=== PATIENT | female | born 1945 | race Caucasian/White ===

== ENCOUNTER 2016-08-01 14:19 | Inpatient (IN) | payer MEDICARE ==
--- NOTE | ~2016-08-01 | HP ---
History And Physical [facility] [id number] [place]. [address] NAME: ANDRE KILLIAN : 49 STATUS : ADM Rita PAT#: [id number] AGE: 71 ADM/REG DATE : 08/01/16 MR#: [id number] REPORT SERV DATE: 08/01/16 DICTATED BY: NEO DRISCOLL DATE: 08/01/16 REPORT STATUS : Draft TRANSCRIBED BY: MODCorie DATE: 08/01/16 DATE OF ADMISSION: 08/01/2016 CHIEF COMPLAINT: Altered mentation with hypoglycemia. HISTORY OF PRESENT ILLNESS: Ms. Killian is a very pleasant, 71-year-old white female with end-stage renal disease. She dialyzes Tuesday, Tuesday, Tuesday at the [facility] through a left upper arm AV fistula. She was recently here at [facility] in 06/2016, at which time, she was diagnosed with hepatocellular cancer via biopsy. She was recently started on an oral chemotherapy and has been followed by Dr. German. She presented today with hypoglycemia having blood sugars in the 50s per EMS along with altered mentation. She was brought into the ER where her sugar was 61. Potassium 4.0. White count 15,500. Chest x- ray showed a moderate left-sided pleural effusion. She is awake, alert, oriented, but concerned for ongoing hypoglycemia. Nephrology was called for admission. She has been taking 25 units of Levemir insulin twice a day at home. Interestingly, her A1c which was 9.5% in 12/2015 was 5.9% as recently as 07/15/2016. PAST MEDICAL HISTORY: 1. ESRD, MWF [facility], left upper arm AV fistula. 2. IDDM with recent A1c of 5.9%. 3. Liver cancer, diagnosed in 06/2016. 4. Hypertension. 5. History of TIAs. 6. IBS. 7. Oxygen-dependent COPD 4 L chronically. 8. Cirrhosis. 9. Chronic pain. MEDICATIONS: 1. Amlodipine 10 mg daily. 2. Aspirin 325 mg daily. 3. Neurontin 200 mg daily. 4. Levemir 25 units b.i.d. 5. Novolin sliding scale. 6. Lisinopril 40 mg daily. 7. Metoprolol 12.5 mg b.i.d. 8. MS Contin 15 mg b.i.d. 9. Prilosec 20 mg daily. 10.Renvela 800 mg with meals. 11.Roxicodone 5 mg p.o. b.i.d. p.r.n. pain. 12.Nexavar 200 mg daily. FAMILY HISTORY: No ESRD. SOCIAL HISTORY: She is . Former remote smoker with heavy tobacco history. History And Physical [address] [place]. [address] NAME: ANDRE KILLIAN : 49 STATUS : ADM Rita PAT#: [id number] AGE: 71 ADM/REG DATE : 08/01/16 MR#: [id number] REPORT SERV DATE: 08/01/16 DICTATED BY: NEO DIRSCOLL DATE: 08/01/16 REPORT STATUS : Draft TRANSCRIBED BY: HAILEE DATE: 08/01/16 REVIEW OF SYSTEMS: Please see HPI for pertinent details. PHYSICAL EXAMINATION: VITAL SIGNS: Temperature 99.2, pulse 89, respirations 18, blood pressure 125/46, and 96% saturation on 4 L per nasal cannula. GENERAL: She is a pleasant, elderly appearing white female. Awake, alert, oriented, and cooperative with the exam. Appears chronically ill. She is accompanied by multiple family members. She is sitting up in her hospital stretcher in no distress. NEURO: Grossly nonfocal. HEENT: Sclerae without icterus. Conjunctivae not injected. Oropharynx is clear. She has diffuse bilateral rhonchi with decreased breath sounds at the left base. No tachypnea or dyspnea on O2 per nasal cannula. Regular rate and rhythm. No murmur, rub, or gallop. ABDOMEN: Obese, soft, nontender, and nondistended. Bowel sounds present throughout without rebound, guarding, or peritoneal signs. EXTREMITIES: No edema. SKIN: No rash. Left upper arm AV fistula, has palpable thrill, audible bruit. LABORATORY DATA: Sodium 136, potassium 4, bicarb 31, BUN 20, creatinine 4.1, glucose 61, calcium 7.6, albumin 2.2, troponin and liver function tests were normal. White count 15,500, hemoglobin 11.3, and platelets 387,000. INR 1.3. ASSESSMENT AND PLAN: 1. End stage renal disease, on chronic dialysis. 2. Insulin-dependent diabetes mellitus. 3. Recent liver cancer. 4. Hypoglycemia. 5. Chronic obstructive pulmonary disease, on oxygen at home. 6. Leukocytosis. 7. Hypoalbuminemia. 8. Weight loss. 9. Left pleural effusion. Admit to the Renal Service. We will hold the Levemir. Place her on gentle D10 IV fluids. Cover with sliding scale insulin. Interestingly, her A1c was only 5.9% in 06/2016. Unclear at this point, the reason for the improvement. That might be related to her weight loss from cancer and/or chemotherapy ?. For now, may not need to be on scheduled Levemir at home ?. PLAN: Dialysis tomorrow. Protect left arm. Family updated. Watch labs. Provide supportive care. Hold off on antibiotics at this time. Watch labs closely. Hopefully, can transition to the outpatient setting in the next 24 to 48 hours. FREEDOM/HAILEE History And Physical [address] [address] NAME: ANDRE KILLIAN : 49 STATUS : ADM Rita PAT#: [id number] AGE: 71 ADM/REG DATE : 08/01/16 MR#: [id number] REPORT SERV DATE: 08/01/16 DICTATED BY: NEO DRISCOLL DATE: 08/01/16 REPORT STATUS : Draft TRANSCRIBED BY: HAILEE DATE: 08/01/16 Neo Driscoll M.D. / [id number] CC: Roma Mccarthy M.D.
--- NOTE | ~2016-08-01 | DS ---
Discharge Summary [facility] [address] [place]. [address] NAME: ANDRE GRISSOM : 49 STATUS : DIS IN PAT#: [id number] AGE: 71 ADM/REG DATE : 08/02/16 MR#: [id number] REPORT SERV DATE: 08/20/16 DICTATED BY: DENEEN PRESCOTT JR DATE: 08/19/16 REPORT STATUS : Draft TRANSCRIBED BY: HAILEE DATE: 08/19/16 Data Collection from hospitalization DISCHARGE DIAGNOSES: 1. End-stage renal disease. 2. Hypoglycemia - resolved. 3. Altered mental status - resolved. 4. Chronic obstructive pulmonary disease with O2 dependence. 5. Hepatic cellular cancer. 6. Diabetes mellitus. 7. Hypertension. 8. History of transient ischemic attacks. 9. Irritable bowel syndrome. 10.Oxygen-dependent chronic obstructive pulmonary disease. 11.Cirrhosis. 12.Chronic pain. 13.Former smoker. CONSULTATIONS: None. PROCEDURES PERFORMED: None. MEDICATIONS: Norvasc 10 mg daily - hold for systolic blood pressure less than 110, aspirin 325 mg daily, Benadryl 25 mg at bedtime, Colace 100 mg at bedtime, NovoLog injection insulin as instructed, Prinivil 40 mg daily - hold for systolic blood pressure less than 110, MS Contin 15 mg twice a day, Megace oral suspension 800 mg daily, Lopressor 12.5 mg twice a day - hold for systolic blood pressure less than 100, Prilosec 20 mg daily, Nexavar 200 mg as instructed, Renvela 800 mg with meals, DuoNeb 3 mL via inhaler every four hours, Neurontin 200 mg daily, and Roxicodone 5 mg twice a day as needed. CONDITION AT DISCHARGE: Stable. DISPOSITION: The patient was discharged home to be followed by hospice. HOSPICE COURSE: This is a 71-year-old female who has end-stage renal disease. She dialyzes on Mondays, Wednesdays, and Fridays through a left upper arm AV fistula. She was recently here in June of 2016 at which time, she was diagnosed with hepatocellular cancer via a biopsy. She had recently started oral chemotherapy and had been followed by Dr. German. She presented on the day of this admission with hypoglycemia and had blood sugars in the 50s according to the EMS along with altered mentation. She was brought to the emergency room where her sugar was 61, potassium was 4.0, and white count was 15,500. Chest x-ray showed moderate left-sided pleural effusion. There was concern for ongoing hypoglycemia. She was admitted to the hospital at this time for further evaluation and treatment. Upon admission, sliding scale insulin was started as well as gentle D10 IV fluids. Her hemoglobin A1c in June of 2016 had been 5.9%, and in December of 2015, it had been 9.5%. We were unclear as to the reason for this improvement, it may be related to her weight loss from cancer and/or questionably chemotherapy. For now, she may not need to be on scheduled Discharge Summary [facility] [place] [id number] [facility] [place]. [address] NAME: ANDRE GRISSOM : 49 STATUS : DIS IN PAT#: [id number] AGE: 71 ADM/REG DATE : 08/02/16 MR#: [id number] REPORT SERV DATE: 08/20/16 DICTATED BY: DENEEN PRESCOTT JR DATE: 08/19/16 REPORT STATUS : Draft TRANSCRIBED BY: HAILEE DATE: 08/19/16 Levemir at home. Dialysis was going to be performed. We would protect the left arm. Supportive care was being provided. On 08/03/2016, her white count was 15.5. Creatinine level was 3.33. DuoNebs were being provided. She was evaluated by Occupational Therapy. Hemodialysis therapy continued. On 08/05/2016, she did have some nausea. Her white blood cell count had improved. Hemodialysis therapy continued. On 08/06/2016, she had good pain control. She had no nausea or vomiting. Her altered mental status had resolved. Blood cultures were negative. The next day, she did complain of some constipation and nausea. A discussion was held with the patient and her daughter. A Hospice consult was going to be provided. The patient was going to be a DNR code status. Hypoglycemia had improved. A [facility] referral was made. A hospice office coordinator met with the patient and her family. Hospice philosophy and services were discussed. [facility] also met with the patient and her family. The patient and her family agreed on [facility]. Discharge planning was performed. On 08/10/2016, the patient had no new complaints. Discharge instructions were given. Due to her improved and stable condition, she was discharged home to be followed by [facility] with the above-stated instructions. Information collected by: Lillie Abbott I submit the above information as my discharge summary. MABEL/HAILEE Deneen Prescott Jr, M.D. / [id number] CC: Roma Mccarthy M.D. [facility]
[2016-08-01 13:32] LABS: BASOPHILS 0.5 %; BASOPHILS ABSOLUTE 0.08 10/3/uL (0.0-0.16); EOSINOPHILS 1.6 %; EOSINOPHILS ABSOLUTE 0.25 10/3/uL (0.0-0.53); HEMATOCRIT 34.6 % (36.0-48.0); HEMOGLOBIN 11.3 g/dL (12.0-16.0); IMMATURE GRANULOCYTES 0.3 %; IMMATURE GRANULOCYTES ABSOLUTE 0.05 10/3/uL (0.0-0.11); LYMPHOCYTES ABSOLUTE 1.24 10/3/uL (0.67-4.30); MEAN CORPUS HGB CONC 32.7 g/dL (32.0-36.0); MEAN CORPUSCULAR HEMOGLOB 31.6 pg (26.0-34.0); MEAN CORPUSCULAR VOLUME 96.6 fL (80-100); MEAN PLATELET VOLUME 9.6 fL (9.2-13.0); MONOCYTES 7.4 %; MONOCYTES ABSOLUTE 1.14 10/3/uL (0.21-1.20); NEUTROPHILS 82.2 %; NEUTROPHILS ABSOLUTE 12.75 10/3/uL (2.02-8.40); PLATELET COUNT 387 10/3/uL (150-400); RBC DISTRIBUTION WIDTH 14.7 % (12.0-16.0); RED CELL COUNT 3.58 10/6/uL (4.0-5.6)
[2016-08-01 13:33] LABS: ER CBC TAT 0 Hrs 10 Mins; MANUAL DIFF NO %; WHITE BLOOD CELLS 15.5 10/3/uL (4.5-10.5)
[2016-08-01 13:38] LABS: INTERNATIONAL NORMAL RATI 1.3 UNITS (-)
[2016-08-01 13:39] LABS: PARTIAL THROMBO TIME 38.1 SEC (22.5-37.2)
[2016-08-01 13:48] LABS: A/G RATIO 0.5 (0.7-1.9); ALBUMIN 2.2 G/DL (3.5-5.0); BUN (BLOOD UREA NITROGEN) 20 MG/DL (6-23); CALCIUM, SERUM 7.6 MG/DL (8.5-10.4); CHLORIDE, SERUM 94 MMOL/L (96-112); CO2 (CARBON DIOXIDE) 31 MMOL/L (24-34); GLOBULIN 4.5 G/DL (2.5-4.1); GLUCOSE, SERUM 61 MG/DL (60-99); SGOT(AST) 29 U/L (5-40); SGPT(ALT) 11 U/L (5-65); SODIUM, SERUM 136 MMOL/L (135-148); TOTAL PROTEIN 6.7 G/DL (6.0-8.5); TROPONIN I <0.02 NG/ML (<0.05)
[2016-08-01 13:49] LABS: ALKALINE PHOSPHATASE 186 U/L (45-117); CREATININE 4.07 MG/DL (0.55-1.02); GFR AFRICAN AMERICAN 12 ML/MIN (>=60); GFR NON AFRICAN AMERICAN 11 ML/MIN (>=60); TOTAL BILIRUBIN 0.9 MG/DL (0-1.2)
[~2016-08-01 14:19] MED LIST: *UNABLE1; ACET500CAP PO; ACETSUP650 PR; ACULAR OPH; ADVAIR250 INH; APRES50 PO; ASA5GR PO; ASABAYER PO; AT25 PO; ATROVENT HFA17 MCG INH; B121000P IM; BEN25 PO; BENTYL10 PO; CIP2 PO; CIP5 PO; CIPRO PO; CLARIT10 PO; DSS PO; ENDOCET1 TAB PO; HABIT21 TOP; HUMALOG SC; IMOD PO; K500 PO; KDUR20 PO; L20 PO; L40 PO; LEVEMFLXPN SC; LEVEMIR SC; LISINOPRIL PO; LISINOPRIL40 MG PO; LOP25 PO; MIRALAXPKT OR; MIRALAXPKT PO; NEUR100 PO; NEUR800 PO; NICODERM C21 MG/241 TOP; NORV10 PO; NORV5 PO; NORVASC PO; NOVOLOG SC; OCUFLOX OPH; PCET PO; PEP20 PO; PLAVIX PO; PR25 PO; PREDFORTE OPH; PRILO PO; PROTONIX PO; PROVENTSOL INH; RENVELA800 MG PO; SEVE800T PO; SPIRIVA INH; TYLENOL ARTH650 MG PO; VITAMIN B-121000 MC1 SL; ZESTRIL40 MG PO; ZOFRAN4 PO; [UNRECOGNIZED DRUG - REMARK]
[2016-08-01] MEDS ORDERED: ZESTRIL40 MG PO (14:55)
[2016-08-01] MEDS ORDERED: NORV10 PO (14:55)
[2016-08-01] MEDS ORDERED: ASABAYER PO (14:56)
[2016-08-01] MEDS ORDERED: PRILO PO (14:56)
[2016-08-01] MEDS ORDERED: NEUR100 PO (14:57)
[2016-08-01] MEDS ORDERED: BEN25 PO (14:57)
[2016-08-01] MEDS ORDERED: MSCONT15 PO (14:57)
[2016-08-01] MEDS ORDERED: NOVOLOG SC (14:58)
[2016-08-01] MEDS ORDERED: NEXAVAR200 PO (14:58)
[2016-08-01] MEDS ORDERED: LOP25 PO (14:58)
[2016-08-01] MEDS ORDERED: OXYCOD PO (14:58)
[2016-08-01] MEDS ORDERED: LEVEMIR SC (14:59)
[2016-08-01] MEDS ORDERED: SEVE800T PO (14:59)
[2016-08-02 16:14] LABS: ALBUMIN 2.1 G/DL (3.5-5.0); CALCIUM, SERUM 7.6 MG/DL (8.5-10.4); CHLORIDE, SERUM 93 MMOL/L (96-112); CO2 (CARBON DIOXIDE) 31 MMOL/L (24-34); CREATININE 4.42 MG/DL (0.55-1.02); GFR AFRICAN AMERICAN 11 ML/MIN (>=60); GFR NON AFRICAN AMERICAN 10 ML/MIN (>=60); POTASSIUM, SERUM 4.1 MMOL/L (3.5-5.3); SODIUM, SERUM 134 MMOL/L (135-148)
[2016-08-02 16:16] LABS: BUN (BLOOD UREA NITROGEN) 26 MG/DL (6-23); GLUCOSE, SERUM 125 MG/DL (60-99); PHOSPHORUS, SERUM 3.5 MG/DL (2.5-4.5)
[2016-08-02 16:23] LABS: BASOPHILS 0.3 %; BASOPHILS ABSOLUTE 0.05 10/3/uL (0.0-0.16); EOSINOPHILS 2.5 %; EOSINOPHILS ABSOLUTE 0.42 10/3/uL (0.0-0.53); HEMATOCRIT 33.2 % (36.0-48.0); IMMATURE GRANULOCYTES 0.2 %; IMMATURE GRANULOCYTES ABSOLUTE 0.04 10/3/uL (0.0-0.11); LYMPHOCYTES 11.2 %; LYMPHOCYTES ABSOLUTE 1.85 10/3/uL (0.67-4.30); MANUAL DIFF NO %; MEAN CORPUS HGB CONC 33.1 g/dL (32.0-36.0); MEAN CORPUSCULAR HEMOGLOB 31.5 pg (26.0-34.0); MEAN CORPUSCULAR VOLUME 95.1 fL (80-100); MEAN PLATELET VOLUME 9.6 fL (9.2-13.0); MONOCYTES 9.6 %; MONOCYTES ABSOLUTE 1.58 10/3/uL (0.21-1.20); NEUTROPHILS 76.2 %; NEUTROPHILS ABSOLUTE 12.57 10/3/uL (2.02-8.40); PLATELET COUNT 375 10/3/uL (150-400); RBC DISTRIBUTION WIDTH 14.6 % (12.0-16.0); RED CELL COUNT 3.49 10/6/uL (4.0-5.6); WHITE BLOOD CELLS 16.5 10/3/uL (4.5-10.5)
[2016-08-03 07:07] LABS: ALBUMIN 2.2 G/DL (3.5-5.0); BUN (BLOOD UREA NITROGEN) 17 MG/DL (6-23); CALCIUM, SERUM 7.8 MG/DL (8.5-10.4); CHLORIDE, SERUM 99 MMOL/L (96-112); CO2 (CARBON DIOXIDE) 29 MMOL/L (24-34); CREATININE 3.33 MG/DL (0.55-1.02); GFR AFRICAN AMERICAN 16 ML/MIN (>=60); GFR NON AFRICAN AMERICAN 13 ML/MIN (>=60); GLUCOSE, SERUM 159 MG/DL (60-99); POTASSIUM, SERUM 3.9 MMOL/L (3.5-5.3); SODIUM, SERUM 139 MMOL/L (135-148)
[2016-08-03 07:17] LABS: BASOPHILS 0.5 %; BASOPHILS ABSOLUTE 0.07 10/3/uL (0.0-0.16); EOSINOPHILS 1.4 %; EOSINOPHILS ABSOLUTE 0.21 10/3/uL (0.0-0.53); HEMATOCRIT 33.9 % (36.0-48.0); HEMOGLOBIN 10.8 g/dL (12.0-16.0); IMMATURE GRANULOCYTES 0.3 %; IMMATURE GRANULOCYTES ABSOLUTE 0.05 10/3/uL (0.0-0.11); LYMPHOCYTES 9.1 %; LYMPHOCYTES ABSOLUTE 1.41 10/3/uL (0.67-4.30); MEAN CORPUS HGB CONC 31.9 g/dL (32.0-36.0); MEAN CORPUSCULAR HEMOGLOB 31.2 pg (26.0-34.0); MEAN PLATELET VOLUME 9.9 fL (9.2-13.0); MONOCYTES 9.6 %; MONOCYTES ABSOLUTE 1.49 10/3/uL (0.21-1.20); NEUTROPHILS 79.1 %; NEUTROPHILS ABSOLUTE 12.23 10/3/uL (2.02-8.40); PLATELET COUNT 366 10/3/uL (150-400); RBC DISTRIBUTION WIDTH 14.6 % (12.0-16.0); RED CELL COUNT 3.46 10/6/uL (4.0-5.6); WHITE BLOOD CELLS 15.5 10/3/uL (4.5-10.5)
[2016-08-03 07:27] LABS: MANUAL DIFF NO %
[2016-08-04 17:59] LABS: BASOPHILS 0.4 %; BASOPHILS ABSOLUTE 0.06 10/3/uL (0.0-0.16); EOSINOPHILS 2.7 %; EOSINOPHILS ABSOLUTE 0.39 10/3/uL (0.0-0.53); HEMATOCRIT 30.7 % (36.0-48.0); HEMOGLOBIN 9.9 g/dL (12.0-16.0); IMMATURE GRANULOCYTES 0.3 %; IMMATURE GRANULOCYTES ABSOLUTE 0.04 10/3/uL (0.0-0.11); LYMPHOCYTES 9.8 %; LYMPHOCYTES ABSOLUTE 1.39 10/3/uL (0.67-4.30); MANUAL DIFF NO %; MEAN CORPUS HGB CONC 32.2 g/dL (32.0-36.0); MEAN CORPUSCULAR VOLUME 96.2 fL (80-100); MEAN PLATELET VOLUME 9.7 fL (9.2-13.0); MONOCYTES 8.6 %; MONOCYTES ABSOLUTE 1.23 10/3/uL (0.21-1.20); NEUTROPHILS 78.2 %; NEUTROPHILS ABSOLUTE 11.14 10/3/uL (2.02-8.40); PLATELET COUNT 350 10/3/uL (150-400); RBC DISTRIBUTION WIDTH 14.7 % (12.0-16.0); RED CELL COUNT 3.19 10/6/uL (4.0-5.6); WHITE BLOOD CELLS 14.3 10/3/uL (4.5-10.5)
[2016-08-04 18:07] LABS: CALCIUM, SERUM 8.2 MG/DL (8.5-10.4); CHLORIDE, SERUM 96 MMOL/L (96-112); CO2 (CARBON DIOXIDE) 30 MMOL/L (24-34); GFR AFRICAN AMERICAN 11 ML/MIN (>=60); GFR NON AFRICAN AMERICAN 9 ML/MIN (>=60); GLUCOSE, SERUM 151 MG/DL (60-99); PHOSPHORUS, SERUM 3.8 MG/DL (2.5-4.5); POTASSIUM, SERUM 3.7 MMOL/L (3.5-5.3); SODIUM, SERUM 137 MMOL/L (135-148)
[2016-08-04 18:08] LABS: BUN (BLOOD UREA NITROGEN) 29 MG/DL (6-23); CREATININE 4.51 MG/DL (0.55-1.02)
[2016-08-05 06:31] LABS: BASOPHILS 0.4 %; BASOPHILS ABSOLUTE 0.05 10/3/uL (0.0-0.16); EOSINOPHILS 3.4 %; EOSINOPHILS ABSOLUTE 0.42 10/3/uL (0.0-0.53); HEMATOCRIT 32.9 % (36.0-48.0); HEMOGLOBIN 10.3 g/dL (12.0-16.0); IMMATURE GRANULOCYTES 0.4 %; IMMATURE GRANULOCYTES ABSOLUTE 0.05 10/3/uL (0.0-0.11); LYMPHOCYTES 8.4 %; LYMPHOCYTES ABSOLUTE 1.02 10/3/uL (0.67-4.30); MEAN CORPUS HGB CONC 31.3 g/dL (32.0-36.0); MEAN CORPUSCULAR HEMOGLOB 30.9 pg (26.0-34.0); MEAN CORPUSCULAR VOLUME 98.8 fL (80-100); MEAN PLATELET VOLUME 9.8 fL (9.2-13.0); MONOCYTES 9.7 %; MONOCYTES ABSOLUTE 1.18 10/3/uL (0.21-1.20); NEUTROPHILS 77.7 %; NEUTROPHILS ABSOLUTE 9.46 10/3/uL (2.02-8.40); PLATELET COUNT 319 10/3/uL (150-400); RBC DISTRIBUTION WIDTH 14.9 % (12.0-16.0); RED CELL COUNT 3.33 10/6/uL (4.0-5.6); WHITE BLOOD CELLS 12.2 10/3/uL (4.5-10.5)
[2016-08-05 06:32] LABS: MANUAL DIFF NO %
[2016-08-05 08:42] LABS: ALBUMIN 2.2 G/DL (3.5-5.0); CHLORIDE, SERUM 103 MMOL/L (96-112); CO2 (CARBON DIOXIDE) 27 MMOL/L (24-34); GFR AFRICAN AMERICAN 15 ML/MIN (>=60); GFR NON AFRICAN AMERICAN 13 ML/MIN (>=60); GLUCOSE, SERUM 127 MG/DL (60-99); PHOSPHORUS, SERUM 3.1 MG/DL (2.5-4.5); POTASSIUM, SERUM 4.3 MMOL/L (3.5-5.3); SODIUM, SERUM 140 MMOL/L (135-148)
[2016-08-05 08:48] LABS: BUN (BLOOD UREA NITROGEN) 17 MG/DL (6-23); CREATININE 3.43 MG/DL (0.55-1.02)
[2016-08-06 13:26] LABS: BASOPHILS 0.2 %; BASOPHILS ABSOLUTE 0.03 10/3/uL (0.0-0.16); EOSINOPHILS 0.6 %; EOSINOPHILS ABSOLUTE 0.08 10/3/uL (0.0-0.53); HEMATOCRIT 30.3 % (36.0-48.0); HEMOGLOBIN 9.9 g/dL (12.0-16.0); IMMATURE GRANULOCYTES 0.4 %; IMMATURE GRANULOCYTES ABSOLUTE 0.05 10/3/uL (0.0-0.11); LYMPHOCYTES 6.8 %; LYMPHOCYTES ABSOLUTE 0.95 10/3/uL (0.67-4.30); MANUAL DIFF NO %; MEAN CORPUS HGB CONC 32.7 g/dL (32.0-36.0); MEAN CORPUSCULAR HEMOGLOB 31.5 pg (26.0-34.0); MEAN CORPUSCULAR VOLUME 96.5 fL (80-100); MEAN PLATELET VOLUME 9.7 fL (9.2-13.0); MONOCYTES ABSOLUTE 1.12 10/3/uL (0.21-1.20); NEUTROPHILS ABSOLUTE 11.78 10/3/uL (2.02-8.40); PLATELET COUNT 306 10/3/uL (150-400); RED CELL COUNT 3.14 10/6/uL (4.0-5.6)
[2016-08-06 13:38] LABS: ALBUMIN 2.4 G/DL (3.5-5.0); CALCIUM, SERUM 8.2 MG/DL (8.5-10.4); CHLORIDE, SERUM 100 MMOL/L (96-112); CO2 (CARBON DIOXIDE) 24 MMOL/L (24-34); GFR AFRICAN AMERICAN 11 ML/MIN (>=60); GFR NON AFRICAN AMERICAN 10 ML/MIN (>=60); GLUCOSE, SERUM 140 MG/DL (60-99); PHOSPHORUS, SERUM 3.3 MG/DL (2.5-4.5); POTASSIUM, SERUM 4.4 MMOL/L (3.5-5.3); SODIUM, SERUM 138 MMOL/L (135-148)
[2016-08-06 13:39] LABS: BUN (BLOOD UREA NITROGEN) 28 MG/DL (6-23); CREATININE 4.37 MG/DL (0.55-1.02)
[2016-08-07 06:55] LABS: ALBUMIN 2.3 G/DL (3.5-5.0); BUN (BLOOD UREA NITROGEN) 19 MG/DL (6-23); CALCIUM, SERUM 8.2 MG/DL (8.5-10.4); CHLORIDE, SERUM 100 MMOL/L (96-112); CO2 (CARBON DIOXIDE) 25 MMOL/L (24-34); CREATININE 3.29 MG/DL (0.55-1.02); GFR AFRICAN AMERICAN 16 ML/MIN (>=60); GFR NON AFRICAN AMERICAN 14 ML/MIN (>=60); GLUCOSE, SERUM 138 MG/DL (60-99); PHOSPHORUS, SERUM 2.9 MG/DL (2.5-4.5); POTASSIUM, SERUM 4.3 MMOL/L (3.5-5.3); SODIUM, SERUM 138 MMOL/L (135-148)
[2016-08-07 08:04] LABS: BASOPHILS 0.3 %; BASOPHILS ABSOLUTE 0.04 10/3/uL (0.0-0.16); EOSINOPHILS ABSOLUTE 0.13 10/3/uL (0.0-0.53); HEMATOCRIT 32.2 % (36.0-48.0); IMMATURE GRANULOCYTES 0.4 %; IMMATURE GRANULOCYTES ABSOLUTE 0.05 10/3/uL (0.0-0.11); LYMPHOCYTES 9.2 %; LYMPHOCYTES ABSOLUTE 1.23 10/3/uL (0.67-4.30); MANUAL DIFF NO %; MEAN CORPUS HGB CONC 31.1 g/dL (32.0-36.0); MEAN CORPUSCULAR HEMOGLOB 29.8 pg (26.0-34.0); MEAN CORPUSCULAR VOLUME 95.8 fL (80-100); MONOCYTES ABSOLUTE 1.07 10/3/uL (0.21-1.20); NEUTROPHILS 81.1 %; NEUTROPHILS ABSOLUTE 10.87 10/3/uL (2.02-8.40); PLATELET COUNT 299 10/3/uL (150-400); RBC DISTRIBUTION WIDTH 15.3 % (12.0-16.0); RED CELL COUNT 3.36 10/6/uL (4.0-5.6); WHITE BLOOD CELLS 13.4 10/3/uL (4.5-10.5)
[2016-08-09 07:53] LABS: BASOPHILS 0.4 %; BASOPHILS ABSOLUTE 0.06 10/3/uL (0.0-0.16); EOSINOPHILS 2.3 %; EOSINOPHILS ABSOLUTE 0.37 10/3/uL (0.0-0.53); HEMOGLOBIN 10.4 g/dL (12.0-16.0); IMMATURE GRANULOCYTES 0.7 %; IMMATURE GRANULOCYTES ABSOLUTE 0.12 10/3/uL (0.0-0.11); LYMPHOCYTES 10.1 %; LYMPHOCYTES ABSOLUTE 1.66 10/3/uL (0.67-4.30); MEAN CORPUS HGB CONC 32.5 g/dL (32.0-36.0); MEAN CORPUSCULAR HEMOGLOB 30.3 pg (26.0-34.0); MEAN CORPUSCULAR VOLUME 93.3 fL (80-100); MEAN PLATELET VOLUME 9.7 fL (9.2-13.0); MONOCYTES 6.8 %; MONOCYTES ABSOLUTE 1.12 10/3/uL (0.21-1.20); NEUTROPHILS 79.7 %; NEUTROPHILS ABSOLUTE 13.08 10/3/uL (2.02-8.40); PLATELET COUNT 273 10/3/uL (150-400); RBC DISTRIBUTION WIDTH 15.3 % (12.0-16.0); RED CELL COUNT 3.43 10/6/uL (4.0-5.6); WHITE BLOOD CELLS 16.4 10/3/uL (4.5-10.5)
[2016-08-09 07:54] LABS: MANUAL DIFF NO %
[2016-08-09 08:05] LABS: ALBUMIN 2.3 G/DL (3.5-5.0); BUN (BLOOD UREA NITROGEN) 38 MG/DL (6-23); CALCIUM, SERUM 8.3 MG/DL (8.5-10.4); CHLORIDE, SERUM 100 MMOL/L (96-112); CO2 (CARBON DIOXIDE) 26 MMOL/L (24-34); CREATININE 4.62 MG/DL (0.55-1.02); GFR AFRICAN AMERICAN 10 ML/MIN (>=60); GFR NON AFRICAN AMERICAN 9 ML/MIN (>=60); GLUCOSE, SERUM 118 MG/DL (60-99); PHOSPHORUS, SERUM 3.3 MG/DL (2.5-4.5); POTASSIUM, SERUM 4.4 MMOL/L (3.5-5.3); SODIUM, SERUM 137 MMOL/L (135-148)
== END 2016-08-10 14:35 | disposition hospice, home (50) | DRG 637 ==
LOC: ER 14:19 → 4SO 17:38
PROVIDERS: Emergency Medicine; Internal Medicine Nephrology; Registered Nurse
PROC: 5A1D60Z (ICD-10-PCS; principal; 2016-08-02)
DX: E11.649 Type 2 diabetes mellitus with hypoglycemia without coma (principal); G93.41 Metabolic encephalopathy; C22.0 Liver cell carcinoma; J96.10 Chronic respiratory failure, unspecified whether with hypoxia or hypercapnia; J90 Pleural effusion, not elsewhere classified; I12.0 Hypertensive chronic kidney disease with stage 5 chronic kidney disease or end stage renal disease; N18.6 End stage renal disease; K58.9 Irritable bowel syndrome, unspecified; Z51.5 Encounter for palliative care; J44.9 Chronic obstructive pulmonary disease, unspecified; E11.22 Type 2 diabetes mellitus with diabetic chronic kidney disease; Z99.81 Dependence on supplemental oxygen; Z99.2 Dependence on renal dialysis; Z79.4 Long term (current) use of insulin; Z86.73 Personal history of transient ischemic attack (TIA), and cerebral infarction without residual deficits; Z79.82 Long term (current) use of aspirin; Z87.891 Personal history of nicotine dependence
CPT/HCPCS: 71010; 80053; 80069; 80202; 82962; 83735; 84145; 84484; 85025; 85610; 85730; 87040; 93005; 94640; 99285; A9270-GY; G0257; J1956; J2405; J2550; J3370